=== PATIENT | female | born 1995 | race Caucasian/White ===

== ENCOUNTER 2023-05-04 06:35 | Day surgery (SDC) | payer OTHER ==
[~2023-05-04] VITALS: Ht 157.5 cm; Wt 90.7 kg
[2023-05-04] MEDS ORDERED: CEFAZOLIN SOD 2 GM in D5W 50 ML IV ONE (07:00)
[2023-05-04] MEDS ORDERED: SEVOFLURANE 15 MIN GAS INH ONE (08:55)
[2023-05-04] MEDS ORDERED: PROPOFOL 200MG/ 20ML VIAL (DIPRIVAN) IV ONE (08:55)
[2023-05-04] MEDS ORDERED: DEXAMETHASONE SOD PHOSPHATE 4 MG/ML VIAL ONE (08:55)
[2023-05-04] MEDS ORDERED: ONDANSETRON HCL 4 MG/2 ML VIAL ONE (08:55)
[2023-05-04] MEDS ORDERED: NS 1000 ML IV.SOLN IV ONE (08:55)
[2023-05-04] MEDS ORDERED: NS IRRIG SOLN 5000 ML IR ONE (08:55)
[2023-05-04] MEDS ORDERED: KETOROLAC TROMETHAMINE 30 MG VIAL ONE (08:55)
[2023-05-04] MEDS ORDERED: fentaNYL CITRATE/PF 100 MCG/2 ML AMP ONE (08:58)
[2023-05-04] MEDS ORDERED: ACETAMINOPHEN I.V. 1000 MG 100 ML IV ONE (08:58)
[2023-05-04] MEDS ORDERED: MIDAZOLAM HCL 2 MG/2 ML VIAL (VERSED) ONE (08:58)
[2023-05-04 09:00] VITALS: O2SAT 100
[2023-05-04] MEDS ORDERED: fentaNYL CITRATE/PF 100 MCG/2 ML AMP IVP PRN ×3 (09:15)
[2023-05-04] MEDS ORDERED: ONDANSETRON HCL 4 MG/2 ML VIAL IVP PRN ×2 (09:15→09:45)
[2023-05-04] MEDS ORDERED: LR 1,000 ML IV ONE (09:15)
[2023-05-04] MEDS ORDERED: HYDROcodone/ACETAMIN 5-325 MG TAB (NORCO/ VICODIN) PO PRN (09:45)
[2023-05-04] MEDS ORDERED: OXYCODONE/ACETAMINOPHEN 5-325 TABLET PO PRN ×2 (09:45)
[2023-05-04 15:06] VITALS: BP_SYST 140; PULSE 58; RESP 16
== END 2023-05-04 11:55 | disposition home or self-care (01) ==
LOC: SDS 06:35 → SMU 06:36 → SDS 11:55
PROVIDERS: ATTEND Specialist
DX: N92.0 Excessive and frequent menstruation with regular cycle (principal); N93.8 Other specified abnormal uterine and vaginal bleeding; D26.9 Other benign neoplasm of uterus, unspecified; E28.2 Polycystic ovarian syndrome
CPT/HCPCS: 87081; 58558; 88305; J0690; J1100; J1885; J3465; J2405; J2704; J3010; J7060; J7030; C1819; J0131

== ENCOUNTER 2024-01-03 10:35 | Outpatient (CLI) | payer OTHER ==
[~2024-01-03 10:35] MED LIST: iohexoL 240 mgI/mL, 50 ML INFUS..BTL IV ONE
== END 2024-01-03 19:19 | disposition home or self-care (01) ==
LOC: SRD 10:35
PROVIDERS: ATTEND Specialist
DX: N92.6 Irregular menstruation, unspecified (principal)
CPT/HCPCS: 74740; 58340; Q9966